=== PATIENT | female | born 1945 | race Caucasian/White ===

== ENCOUNTER → 2017-06-13 | Outpatient (CLI) | payer OTHER ==
[2017-06-13 12:33] LABS: BASO % 0.3 %; BASO ABS # 0.02 K/uL (0-0.2); EOS % 0.7 %; EOS ABS # 0.04 K/uL (0-0.5); HEMATOCRIT 33.7 % (37-47); IG# 0.01 K/uL (0.00-0.02); LYMPH % 30.5 %; LYMPH ABS # 1.77 K/uL (1.2-3.4); MEAN CELL VOLUME 87.8 fL (80-100); MEAN CORPUSCULAR HEMOGLOBIN 28.6 pg (25-34); MEAN CORPUSCULAR HGB CONC 32.6 g/dl (32-36); MEAN PLATELET VOLUME 10.5 fL (7.4-10.4); MONO % 9.8 %; MONO ABS # 0.57 K/uL (0.11-0.59); NEUT % 58.5 %; NEUT ABS # 3.39 K/uL (1.4-6.5); PLATELET COUNT 212 K/uL (130-400); RED CELL DISTRIBUTION WIDTH CV 17.3 % (11.5-14.5); RED CELL DISTRIBUTION WIDTH SD 54.9 fL (36.4-46.3)
[2017-06-13 13:06] LABS: ALBUMIN 3.3 gm/dl (3.4-5.0); ALT/SGPT 16 U/L (12-78); AST/SGOT 14 U/L (15-37); BLOOD UREA NITROGEN 19 mg/dl (7-18); CALCIUM 9.3 mg/dl (8.5-10.1); CARBON DIOXIDE 27 mmol/L (21-32); CREATININE 1.45 mg/dl (0.60-1.20); GLUCOSE 93 mg/dl (70-99); POTASSIUM 4.3 mmol/L (3.5-5.1); SODIUM 138 mmol/L (136-145)
[2017-06-13 13:10] LABS: HEMOGLOBIN A1C 5.9 % (4.5-5.6)
[2017-06-13 13:11] LABS: ALKALINE PHOSPHATASE 114 U/L (45-117); CHOLESTEROL 161 mg/dl (0-200); LDL CHOLESTEROL CALCULATED 87 mg/dl; TOTAL PROTEIN 7.1 gm/dl (6.4-8.2); TRANSFERRIN 235 mg/dl (200-360)
== END | disposition home or self-care (01) ==
LOC: C.LABMFLN 07:40
PROVIDERS: ATTEND Family Medicine
DX: E11.9 Type 2 diabetes mellitus without complications (principal); D64.9 Anemia, unspecified; E78.5 Hyperlipidemia, unspecified

== ENCOUNTER → 2017-11-20 | Day surgery (SDC) | payer OTHER ==
[~2017-11-20] VITALS: Ht 167.6 cm; Wt 64.0 kg
[~2017-11-20] MED LIST: ALPR0.25 PO; AMLO2.5T PO; ASPI325T39 PO; BUSP-8 PO; CILO50TA PO; FOLI1TAB8 PO; FURO-85 PO; LIDOCAINE HCL 1% 20 ML VIAL ONE; LOSA100T65 PO; METF-384 PO; METO50TA16 PO; PRLSR20 PO
--- NOTE | 2017-11-20 12:24 | History & Physical Bridge Note ---
H&P Re-Evaluation Bridge Note: I have examined the patient, reviewed the History & Physical and in the interval since the performance of the History & Physical I have noted the following changes of clinical significance: No changes noted
[2017-11-20 12:29] VITALS: BP 145/90; PULSE 67; TEMP 36.7; O2SAT 98; Ht 167.6 cm; Wt 64.0 kg
--- NOTE | 2017-11-20 13:07 | [facility] Operative Report ---
Operative Report Date of Service Nov 20, 2017. Operative Report The procedure performed: Implantation of patient activated loop recorder Staff customer greeter: Steve Gentile MD Indication: The patient is a 72-year-old woman with a history of peripheral vascular disease who has experienced 2 episodes of documented syncope. There is also some concern regarding occult atrial fibrillation. She has worn outpatient monitoring without any recorded arrhythmias. She was advised to consider more prolonged monitoring with an implantable loop recorder. Procedure in detail: The patient was informed of the risks benefits and alternatives to the intended procedure. They understood such and wished to proceed. The patient was taken to the electrophysiology suite where the upper chest area was prepped and draped in the usual sterile fashion. An area left lateral to the sternum in the 4th intercostal space was subsequently anesthetized using subcutaneous administration of lidocaine solution. A small incision was made at this site and implantation of the loop recorder was accomplished using a proprietary implantation tool. The small incision was subsequently closed using a single 4 0 Vicryl suture. Steri-Strips and a sterile dressing were then applied. The patient tolerated the procedure well. There were no immediate complications. The device was tested noninvasively prior to conclusion of the procedure. Equipment used: Patient activated loop recorder: Engineer Ex[employer]er [employer]. Model number LNQ11. Serial number [id number] I attest to the content of the Intraoperative Record and any orders documented therein. Any exceptions are noted below.
--- NOTE | 2017-11-20 13:11 | Discharge Instructions ---
Discharge Instructions Procedure Procedure Date: Nov 20, 2017. Reason for Visit: A-Fib, Seferino To Do. Discharge Discharge Date: Nov 20, 2017. Discharge Diagnosis: Implant of patient activated loop recorder Last Recorded Wt (Kilograms): 64 Medications Stopped Medication(s): None Anesthesia Post Anesthesia Instructions: If you have had General Anesthesia or IV Sedation: * Do not drive today. * Resume driving when surgeon permits. * Do not make important decisions or sign legal documents today. * Call surgeon for: 1. Temperature elevations greater than 101 degrees F. 2. Uncontrollable pain. 3. Excessive bleeding. 4. Persistent nausea and vomiting. 5. Medication intolerance (nausea, vomiting or rash). * For nausea and vomiting use only clear liquids such as: tea, soda, bouillon until nausea subsides, then gradually increase diet as tolerated. * If you have any concerns or questions, call your surgeon's office. If physician is unavailable and it is an emergency, call 911 or go to the nearest emergency room. Instructions Activity Recommendations: shower/bathe limit Return to School/Work: with the following limitations Recommended Home Diet: resume previous diet Allergies: Coded Allergies: Hydromorphone (Verified Adverse Reaction, Severe, CONFUSION, 11/20/17) Provider Instructions Keep wound dry and Steri-Strips intact until follow-up next week with Dr. ion del castillo. May remove outer bulky dressing in the morning. Follow Up Sandi Dumont Recommendations: Call your doctor if: * Temperature above 101 degrees * Pain not relieved by pain medicine ordered * There is increased drainage or redness from any incision * You have any unanswered questions or concerns. Your Doctors Instructions noted above were prepared by provider Abel Gentile. Patient Signature Section: Patient Instructions Signature Page Laquita Lilly Patient (or Guardian) Signature/Date: I have read and understand the instructions given to me by my caregivers. Caregiver/RN/Doctor Signature/Date: The above-named patient and/or guardian has received patient instructions on this date. + Original Patient Signature Page (only) stays with chart. Please make copy for patient.
[2017-11-20 13:12] VITALS: BP 145/90; PULSE 69; TEMP 36.5; O2SAT 95
== END | disposition home or self-care (01) ==
LOC: C.ACU 11:54
PROVIDERS: ATTEND Internal Medicine Clinical Cardiac Electrophysiology
DX: R55 Syncope and collapse (principal); I73.9 Peripheral vascular disease, unspecified; R00.2 Palpitations; I25.10 Atherosclerotic heart disease of native coronary artery without angina pectoris; F17.200 Nicotine dependence, unspecified, uncomplicated; E11.51 Type 2 diabetes mellitus with diabetic peripheral angiopathy without gangrene; I10 Essential (primary) hypertension; E78.5 Hyperlipidemia, unspecified; Z88.8 Allergy status to other drugs, medicaments and biological substances; Z79.82 Long term (current) use of aspirin; Z79.899 Other long term (current) drug therapy; Z79.84 Long term (current) use of oral hypoglycemic drugs

== ENCOUNTER 2018-07-04 07:19 | Observation (INO) ==
[~2018-07-04 07:19] MED LIST changes: -ALPR0.25 PO; -AMLO2.5T PO; -ASPI325T39 PO; -BUSP-8 PO; +CEFAZOLIN 1000MG 1,000 MG/7.5 ML SYR IV SCH; -CILO50TA PO; -FOLI1TAB8 PO; -FURO-85 PO; -LIDOCAINE HCL 1% 20 ML VIAL ONE; -LOSA100T65 PO; +LR 15ML/HR IV SCH; -METF-384 PO; -METO50TA16 PO; -PRLSR20 PO
--- NOTE | 2018-07-04 09:15 | History & Physical Bridge Note ---
Date of Service July 04, 2018 History & Physical Bridge Note I have examined the patient, reviewed the History & Physical and in the interval since the performance of the History & Physical I have noted the following changes of clinical significance: no changes noted
--- NOTE | 2018-07-04 09:16 | Pre Anesthesia Assessment ---
Date of Service July 04, 2018 Pre Sedation Assessment Vital Signs Temp Pulse Resp BP Pulse Ox 07/04/18 08:36 36.6 C 81 18 129/85 99 Cardiovascular + regular rate Respiratory + respiratory effort normal Pre-Sedation Airway Assessment Smoking Status: Current every day smoker Hx Sleep Apnea: No Hx Difficult Intubation: No Short, Thick Neck: No Thyromental Distance: > or= 3.5 Finger Breadths Oral Cavity: + WNL Mallampati Class: III ASA: ASA3 Procedure Planning Contraindications for Sedation: none Current Medications Reviewed: Yes Notes The planned sedation has been discussed with the patient. Informed Consent was obtained. I have identified the patient, determined the appropriateness of sedation and have assessed the patient immediately prior to the procedure. All medicine(s) and interventions are by my order.
[2018-07-04] MEDS ORDERED: fentaNYL citrate 100 MCG/2 ML VIAL ONE ×2 (09:23→15:00)
[2018-07-04] MEDS ORDERED: BACITRACIN INJ 50,000 UNIT VIAL ONE ×2 (09:23→15:01)
[2018-07-04] MEDS ORDERED: CEFAZOLIN 250 MG/ML 1 GM VIAL ONE ×2 (09:23→15:04)
[2018-07-04] MEDS ORDERED: LIDOCAINE HCL 1% 20 ML VIAL ONE ×2 (09:23→15:01)
[2018-07-04] MEDS ORDERED: MIDAZOLAM HCL 5 MG/ML 1 ML VIAL ONE ×2 (09:23→15:00)
[2018-07-04] MEDS ORDERED: BUPIVACAINE 0.25% 30 ML VIAL ONE (09:23)
[2018-07-04] MEDS ORDERED: ACETAMINOPHEN 325 MG TAB PO PRN (10:46)
--- NOTE | 2018-07-04 10:46 | Procedure Note ---
Procedure Note Date of Service July 04, 2018 Note Procedure performed: Implantation of dual-chamber permanent pacemaker Staff career representative: Steve Gentile MD Indication: The patient is a 73-year-old woman with a history of syncope. She had recently undergone implantation of a loop recorder. Loop recorder did reveal episodes of asystole lasting up to 4 seconds in duration. As result she was felt to be a good candidate for dual-chamber permanent pacemaker due to symptomatic nonreversible sinus node dysfunction. Dual-chamber device was selected as she is currently in sinus rhythm and wished to maintain AV synchrony. Procedure in detail: The patient was informed of the risks benefits and alternatives to the intended procedure and she wished to proceed. She was taken to the electrophysiology suite in a fasting state. A preoperative antibiotic had been administered. The patient was monitored electrocardiographically throughout today's procedure and conscious sedation was administered per protocol. The left upper pectoral area is prepped and draped in usual sterile fashion. This area was anesthetized using subcutaneous administration of a xylocaine solution. An incision was made at this site and carried down to the prepectoralis fascia using sharp dissection. Electrocautery was also employed for dissection as well as for hemostasis. A device pocket was fashioned tissues above the pectoralis muscle. Subsequent to this maneuver the left axillary vein was accessed using modified Seldinger technique. Sheaths were placed over guidewires at this site and used to facilitate passage of the pacing leads to the respective chambers under fluoroscopic guidance. This included right atrial and right ventricular leads. Adequate sensing and threshold parameters were obtained prior to Active fixation of the leads to the endocardial surface. The proximal portion leads were then sutured the prepectoral fascia using nonabsorbable suture. The device pocket was irrigated with antibiotic solution. The leads were then attached to the device. The device and leads were then placed in the pocket and pocket was closed in 3 layers of absorbable suture. Steri-Strips and sterile dressing were applied. The device was tested noninvasively prior to conclusion the procedure. The patient tolerated procedure well there no immediate complications. Equipment used: New pulse generator: [employer]. Model number: W1DR01 serial number [id number] Right atrial lead: [employer]. Model number: 5076 serial number [id number] [id number] Right ventricular lead: Datawarehouse Developer Medtronic. Model number: 5076 serial number [id number] [id number] Measured data: Right atrial lead: P waves measured 1.5 mV. Pacing threshold was 0.5 V at 0.4 ms with a pacing impedance of 625 ohms Right ventricular lead: R waves measured 8.8 mV. Pacing threshold was 0.5 V at 0.4 ms with a pacing impedance of 720 ohms Impression: Successful implantation of dual-chamber permanent pacemaker
--- NOTE | 2018-07-04 12:00 | XRay Report ---
XR chest 1V portable HISTORY: Pacemaker placement. COMPARISON: Chest 10/01/2017. FINDINGS: No pneumothorax. No pleural effusions. The heart is normal in size. The lungs are clear. In terval placement of a left-sided dual-chamber pacemaker. The leads appear intact. Of note, the right ventricular lead does not extend towards the apex of the heart. IMPRESSION: No pneumothorax. Left-sided dual-chamber pacemaker placement. The right ventricular lead does not ext end towards the cardiac apex. Electronically signed by: Rodney España M.D. 07/04/2018 11:58 AM
[2018-07-04] MEDS ORDERED: OXYCODONE HCL IR 5 MG TAB (IMMEDIATE RELEASE) PO PRN (14:44)
[2018-07-04] MEDS ORDERED: MoRPHine SULFATE 2 MG/ML CARP IV PRN (14:44)
--- NOTE | 2018-07-04 14:45 | Pre Anesthesia Assessment ---
Date of Service July 04, 2018 Pre Sedation Assessment Vital Signs Temp Pulse Resp BP Pulse Ox 07/04/18 08:36 36.6 C 81 18 129/85 99 Pre-Sedation Airway Assessment Smoking Status: Current every day smoker Hx Sleep Apnea: No Hx Difficult Intubation: No Short, Thick Neck: No Thyromental Distance: > or= 3.5 Finger Breadths Oral Cavity: + WNL Mallampati Class: III ASA: ASA3 Notes The planned sedation has been discussed with the patient. Informed Consent was obtained. I have identified the patient, determined the appropriateness of sedation and have assessed the patient immediately prior to the procedure. All medicine(s) and interventions are by my order.
[2018-07-04] MEDS ORDERED: BUPIVACAINE 0.5 % 5 MG/1 ML PF 10ML VIAL ONE (15:01)
[2018-07-04] MEDS ORDERED: WATER, STERILE FOR INJ 10 ML VIAL ONE (15:04)
--- NOTE | 2018-07-04 16:18 | Procedure Note ---
Procedure Note Date of Service July 04, 2018 Note Procedure performed: Lead revision for dual-chamber permanent pacemaker Staff patient safety officer: Steve Gentile MD Indication: The patient is a 73-year-old woman who underwent implantation of dual-chamber permanent pacemaker earlier today for sinus arrest. After the procedure she was noted to have a right ventricular lead dislodgment was brought back to the EP lab for revision. Procedure in detail: The patient was informed of the risks benefits and alternatives to the intended procedure and she wished to proceed. She was taken to the electrophysiology suite in a fasting state. A preoperative antibiotic had been administered. The patient was monitored electrocardiographically throughout today's procedure and conscious sedation was administered per protocol. The left upper pectoral area is prepped and draped in usual sterile fashion. This area was anesthetized using subcutaneous administration of a xylocaine solution. An incision was made at the site of the prior implant carried down to the previously implanted device using sharp dissection. Electrocautery was also employed for dissection as well as for hemostasis. The device and leads were removed from the pocket and the leads disconnected from the pulse generator. A wrench was used to retract the stylette on the ventricular lead. Slack was added to the atrial lead. The right ventricular lead was substernally repositioned under fluoroscopic guidance to the right ventricular apex. Adequate sensing threshold parameters were obtained prior to active-fixation of this lead to the endocardial surface. The proximal portion lead was then sutured the prepectoral fascia using nonabsorbable suture. The device pocket was irrigated with an antibiotic solution. Leads were then reattached to the pulse generator. The pulse generator leads then placed in an antibiotic encapsulated pouch and return to the pocket. The pocket was closed with 3 layers of absorbable suture. Steri- Strips and sterile dressing were applied. The device was tested noninvasively prior to conclusion the procedure. The patient tolerated procedure well there no immediate complications. Equipment used: New pulse generator: [employer]. Model number: W1DR01 serial number [id number] Right atrial lead: [employer] Medtronic. Model number: 5076 serial number [id number] [id number] Right ventricular lead: [employer]. Model number: 5076 serial number [id number] [id number] Measured data: Right atrial lead: P waves measured 3.3 mV. Pacing threshold 0.3 V 0.4 ms with a pacing impedance of 529 ohms Right ventricular lead: R waves measured 7.3 mV. Pacing threshold 1.1 V at 0.4 ms with a pacing impedance of 682 ohms Impression: Successful right ventricular lead revision
[2018-07-04] MEDS: CILOSTAZOL 100 MG TAB PO SCH ×2 (17:17→20:57)
[2018-07-04] MEDS: BusPIRone 15 MG TAB PO SCH ×2 (17:17→20:58)
[2018-07-04] MEDS: METOPROLOL TARTRATE 50 MG TAB PO SCH ×2 (17:18→20:59)
[2018-07-04] MEDS: FUROSEMIDE 20 MG TAB PO SCH (17:18)
[2018-07-04] MEDS: ASPIRIN 325 MG ECTAB PO SCH (17:18)
[2018-07-04] MEDS: AMLODIPINE BESYLATE 5 MG TAB PO SCH (17:18)
[2018-07-04] MEDS: PANTOprazole 40 MG TAB PO SCH ×2 (17:19→20:59)
[2018-07-04] MEDS: LOSARTAN POTASSIUM 50 MG TAB PO SCH (17:19)
[2018-07-04] MEDS: FOLIC ACID 1 MG TAB PO SCH (17:19)
[2018-07-04] MEDS: METFORMIN HCL 500 MG TAB PO SCH (17:20)
[2018-07-04] MEDS: CEFAZOLIN 1000MG 1,000 MG/7.5 ML SYR IV SCH (20:57)
[2018-07-05] MEDS: CEFAZOLIN 1000MG 1,000 MG/7.5 ML SYR IV SCH (04:16)
--- NOTE | 2018-07-05 07:53 | XRay Report ---
XR chest 2V routine HISTORY: Pacemaker placement. COMPARISON: Chest 07/04/2018. FINDINGS: There is a left-sided dual-chamber pacemaker. The leads appear intact. No pneumothorax. No pleural effusions. The heart is normal in size. The lungs are hyperexpanded with mild apical predomin ant emphysematous changes. Right upper lobe nodular density not seen on prior studies. This may be ov erlying artifact. Partially visualized abdominal aortic stent. IMPRESSION: No significant change compared to the prior study. No acute process. No pneumothorax. Electronically signed by: Rodney España M.D. 07/05/2018 7:52 AM
[2018-07-05] MEDS: METOPROLOL TARTRATE 50 MG TAB PO SCH (09:56)
[2018-07-05] MEDS: METFORMIN HCL 500 MG TAB PO SCH (09:56)
[2018-07-05] MEDS: FOLIC ACID 1 MG TAB PO SCH (09:57)
[2018-07-05] MEDS: ASPIRIN 325 MG ECTAB PO SCH (09:57)
[2018-07-05] MEDS: BusPIRone 15 MG TAB PO SCH (09:57)
[2018-07-05] MEDS ORDERED: SODIUM CHLORIDE 0.9% 1000ML 500 ML IV ONE (10:36)
[2018-07-05] MEDS: LOSARTAN POTASSIUM 50 MG TAB PO SCH (11:46)
[2018-07-05] MEDS: FUROSEMIDE 20 MG TAB PO SCH (11:46)
[2018-07-05] MEDS: AMLODIPINE BESYLATE 5 MG TAB PO SCH (11:46)
[2018-07-05] MEDS: PANTOprazole 40 MG TAB PO SCH (11:46)
[2018-07-05] MEDS: CILOSTAZOL 100 MG TAB PO SCH (11:46)
--- NOTE | 2018-07-05 13:16 | Discharge Summary ---
Date of Service July 05, 2018 Admission HPI Patient is 71-year-old woman with a history of syncope and prior implantation of patient activated loop recorder. She was noted to have up to 4 second periods of sinus arrest and was therefore referred for pacemaker implantation. Principal Diagnosis Principal Diagnosis Sinus arrest Discharge Exam On the day of discharge the wound was ecchymotic, but there is no hematoma or significant erythema. Discharge Data Allergies Allergy/AdvReac Type Severity Reaction Status Date / Time hydromorphone AdvReac Severe CONFUSION Verified 07/04/18 08:28 Procedures Performed Operation Date: 07/04/18 10:00 Actual Procedures p Pacer with A/V Leads (Dual)(Left) - Abel Gentile MD s Remove Cardiac Event Recorder(Left) - Abel Gentile MD Operation Date: 07/04/18 15:00 Actual Procedures p Lead Reposition RA/RV - Abel Gentile MD Ordered Studies 07/04/18 11:00 EP Lab Images for PACS ONCE 07/04/18 15:15 EP Lab Images for PACS ONCE Hospital Course (1) Sinus arrest: On the day of admission the patient underwent implantation of dual-chamber permanent pacemaker. The initial procedure was uncomplicated but shortly after she arrived on the hospital floor she was noted to have a right ventricular lead dislodgement. It is she was taken back to the electrophysiology suite that same day and underwent a lead revision. The following morning the chest x-ray and device interrogation were normal. However, the patient did have some episodes of hypotension. She responded well to 500 cc fluid bolus. An echocardiogram was performed in order to exclude a pericardial effusion is the etiology of her reduced blood pressure. There was no evidence of pericardial effusion. After period of monitoring she was felt to be stable for discharge. It was assumed that the episodes of hypotension more related to dehydration. She has had frequent episodes of dehydration requiring emergency room evaluation in the past. She had not eaten or drank much of anything for well over 24 hours. She responded well to fluid bolus. Total Time Total Time Spent Total Time Spent (In Minutes): 10 Discharge Plan Discharge Items Patient Disposition: Home - Self-Care Reason For Visit: PACEMAKER INSERTION Discharge Diagnosis: pacemaker implant Discharge Goals: Therapeutic intervention Activity: Per 'Additional Instructions' section Activity Comment: NO lifting left arm above shoulder for 6 weeks. Lifting: No more than 5 pounds Bathing: Keep incision dry Bathing Comment: Keep incision dry until f/u with Dr Lewis Driving/Machine Use: Resume 1 day after discharge Non-emergency contact: [place] Operator Call non-emergency contact if: you have any medication questions, your pain is worsening, you have a fever, your wound has increased redness, your wound has increased drainage and your wound pain has increased Follow-up/Referrals: Bharathi Luke DO [Primary Care Provider] - Diet: Carb Consistent or DM2 and Heart Healthy Addtl Provider Instructions: none Prescriptions: Continued amlodipine 2.5 mg Tablet 2.5 mg PO DAILY Qty: 0 RF: 0 metformin 1,000 mg Tablet 1,000 mg PO BID Qty: 0 RF: 0 omeprazole 20 mg Capsule,Delayed Release(Dr/Ec) 20 mg PO BID Qty: 0 RF: 0 cilostazol 50 mg Tablet 50 mg PO BID Qty: 0 RF: 0 furosemide 20 mg Tablet 20 mg PO DAILY Qty: 0 RF: 0 folic acid 1 mg Tablet 1 mg PO DAILY Qty: 0 RF: 0 losartan 100 mg Tablet 100 mg PO DAILY Qty: 0 RF: 0 buspirone 10 mg Tablet 10 mg PO BID Qty: 0 RF: 0 alprazolam 0.25 mg Tablet 0.25 mg PO BID Qty: 0 RF: 0 metoprolol tartrate 50 mg Tablet 50 mg PO BID Qty: 0 RF: 0 aspirin 325 mg Tablet 325 mg PO DAILY Qty: 0 RF: 0 Visit Report Forms: Smoking Cessation Stand-Alone Forms: [facility] Discharge Orders: Discharge Order (Routine); Ordered 07/05/18 Ordered By: Abel Gentile Admission Data Admit Date/Time: 07/04/18 10:17 Attending Provider: Abel Gentile Admit Provider: Abel Gentile Primary Care Provider: Bharathi Luke Service: Telemetry Other Pending Studies at Discharge: No
== END 2018-07-05 14:00 | disposition home or self-care (01) ==
LOC: ASU 07:19 → 2S 07:19